=== PATIENT | male | born 1955 | race Two or more races ===

== ENCOUNTER 2022-02-01 06:35 | Day surgery (SDC) | payer OTHER ==
[~2022-02-01 06:35] MED LIST: BUSPAR PO; CLONAZEPAM0.5 MG PO; FOLIC ACID0.8 M1 PO; LEVOTHYROXINE25 MCG PO
== END 2022-02-01 14:50 | disposition home or self-care (01) ==
LOC: CIR.AMB 06:35
PROVIDERS: ATTEND Orthopaedic Surgery
DX: M75.121 Complete rotator cuff tear or rupture of right shoulder, not specified as traumatic (principal); M75.21 Bicipital tendinitis, right shoulder; M75.111 Incomplete rotator cuff tear or rupture of right shoulder, not specified as traumatic; E03.9 Hypothyroidism, unspecified; N40.0 Benign prostatic hyperplasia without lower urinary tract symptoms; Z20.822 Contact with and (suspected) exposure to COVID-19

== ENCOUNTER 2025-08-12 09:00 | Day surgery (SDC) | payer OTHER ==
[2025-08-05 09:14] LABS: BASO % 0.4 % (0.1-1.2); EOS # 0.05 (0.04-0.54); EOS % 1.0 % (0.7-7.0); LYMPH # 1.37 (1.18-3.74); LYMPH % 27.2 % (19.3-53.1); MEAN PLATELET VOLUME 10.70 fl (9.4-12.4); MONO # 0.33 (0.24-0.82); MONO % 6.5 % (4.7-12.5); NEUT # 3.25 (1.56-6.13); NEUT % 64.5 % (34.0-71.1); RED CELL DISTRIBUTION WIDTH 12.5 % (11.6-14.4)
[2025-08-05 09:27] VITALS: BP 130/76
[2025-08-05 09:48] LABS: INR 0.99
[2025-08-05 09:59] LABS: ALT/SGPT 51.0 U/L (12-78); AST/SGOT 29.0 U/L (15-37); BILIRUBIN TOTAL 0.49 mg/dL (0.3-1.2); BUN CREA RATIO 27.0 (7.0-25.0); CREATININE SERUM 0.97 mg/dL (0.70-1.30); GFR 76.29; GLOBULINA 3.7 G/DL (2.4-3.5); GLUCOSE FASTING 128.0 mg/dL (65-100); OSMOLALITY SERUM 291.0 MOSM/KG (275-295)
[2025-08-05 10:08] LABS: URINE APPEARANCE Cloudy; URINE BILIRRUBIN Negative (NEGATIVE); URINE BLOOD Negative; URINE COLOR Yellow; URINE GLUCOSE Negative (NEGATIVE); URINE KETONE Negative (NEGATIVE); URINE LEUKOCYTE Negative; URINE NITRATE Negative; URINE PROTEIN Negative (NEGATIVE); URINE UROBILINOGEN 0.2 E.U./dl
[2025-08-05 10:12] LABS: URINE BACTERIA 5.9 uL (0.0-1933); URINE RBC 4.8 uL (0.0-20.8); URINE WBC 1.9 uL (0.0-23.2)
[2025-08-05 10:22] LABS: URINE CAST 0.00 uL (0.0-1.40); URINE EPITHELIAL CELLS 0.1 uL (0.0-38.8)
[~2025-08-12] VITALS: Ht 165.1 cm; Wt 74.8 kg
[~2025-08-12 09:00] MED LIST changes: +MEMANTINE HCL10 MG PO; +PROSCAR5 MG PO
[2025-08-12] MEDS ORDERED: CEFAZOLIN SODIUM 1,000 MG VIAL ONE (10:17)
[2025-08-12] MEDS ORDERED: METHYLPREDNISOLONE ACETATE 80 MG/ML VIAL ONE (11:22)
[2025-08-12] MEDS ORDERED: EPINEPHRINE HCL/PF 1 MG/ML AMPUL ONE (11:25)
[2025-08-12] MEDS ORDERED: BUPIVACAINE HCL/MPF 0.5% 30ML VIAL ONE (11:26)
[2025-08-12] MEDS ORDERED: KETOROLAC TROMETHAMINE 30 MG VIAL ONE (11:35)
[2025-08-12] MEDS ORDERED: LIDOCAINE HCL 1%/EPINEPHRINE 20ML VIAL IJ ONE (11:53)
[2025-08-12] MEDS ORDERED: SUGAMMADEX SODIUM 200 MG/2 ML VIAL IV ONE (12:36)
== END 2025-08-12 17:35 | disposition home or self-care (01) ==
LOC: CIR.AMB 09:00
PROVIDERS: ATTEND Orthopaedic Surgery
DX: M75.122 Complete rotator cuff tear or rupture of left shoulder, not specified as traumatic (principal); M75.22 Bicipital tendinitis, left shoulder; M24.112 Other articular cartilage disorders, left shoulder